=== PATIENT | male | born 1980 | race Caucasian/White ===

== ENCOUNTER 2020-08-03 13:25 | Emergency (ER) | payer SELFPAY ==
[2020-08-03 13:28] VITALS: BP 149/76; PULSE 89; RESP 16; TEMP 37; O2SAT 99; BMI 24.4
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
[2020-08-03 16:27] VITALS: BP 149/76; PULSE 89; RESP 16; TEMP 37; O2SAT 99
== END 2020-08-03 16:27 | disposition home or self-care (01) ==
PROVIDERS: Emergency Provider Family Medicine
DX: S09.90XA Unspecified injury of head, initial encounter (principal); F07.81 Postconcussional syndrome; V48.0XXA Car driver injured in noncollision transport accident in nontraffic accident, initial encounter; Y92.488 Other paved roadways as the place of occurrence of the external cause
CPT/HCPCS: 70450; 72125; 99282

== ENCOUNTER → 2023-09-14 09:45 | Outpatient (CLI) | payer OTHER, SELFPAY ==
[2023-09-14 12:32] LABS: Alanine Aminotransferase 91 U/L (12-78); Albumin Level 4.7 g/dl (3.5-5.0); Albumin/Globulin Ratio 1.6 (1.1-1.8); Alkaline Phosphatase 35 U/L (38-126); Aspartate Amino Transferase 82 U/L (17-59); Blood Urea Nitrogen 14 mg/dl (9-20); Calcium 9.8 mg/dl (8.4-10.2); Carbon Dioxide 25 mmol/L (22.0-30.0); Chloride 100 mmol/L (98-107); Chol/HDL Ratio 7.1 (1-3.5); Cholesterol 221 mg/dl (140-200); Estimated Glomerular Filt Rate 93 ml/min (>60); GFR (African American) 113 ML/MIN (>60); Globulin 2.9 g/dL (1.3-3.2); Glucose 130 mg/dl (74-100); HDL Cholesterol 31 mg/dl (40-60); Sodium 140 mmol/L (136-145); Total Protein,Serum 7.6 g/dl (6.3-8.2); Triglycerides 120 mg/dl (30-150); VLDL Cholesterol 24 mg/dL (0-40)
[2023-09-14 12:35] LABS: Basophils # 0.1 K/mm3 (0-0.2); Basophils % 0.7 % (0.1-2.0); Eosinophils # 0.3 K/mm3 (0.0-0.4); Eosinophils % 2.4 % (0.1-12.0); Hematocrit 48.6 % (42.0-52.0); Hemoglobin 17.2 g/dL (14.1-18.0); Lymphocytes % 28.5 % (10-50); Mean Corpuscular HGB Conc 35.4 g/dL (31.8-35.4); Mean Corpuscular Hemoglobin 32.7 pg (27.0-31.2); Mean Corpuscular Volume 92.5 fl (80-94); Mean Platelet Volume 7.4 fl (7.4-10.4); Monocytes # 0.7 K/mm3 (0.1-1.0); Monocytes % 6.3 % (1.7-9.3); Neutrophils # 6.5 K/mm3 (1.8-7.8); Neutrophils % 62.1 % (37.0-80.0); Platelet Count 215 K/mm3 (142-424); Red Blood Count 5.25 M/mm3 (4.60-6.20); Red Cell Distribution Width 13.1 % (11.5-17.5); White Blood Count 10.5 K/mm3 (4.8-10.8)
[2023-09-14 12:44] LABS: Direct LDL Cholesterol 150.37 mg/dL (100-129)
[2023-09-14 12:49] LABS: 25-OH Vitamin D, Total 38.5 ng/mL (30-100)
[2023-09-14 12:50] LABS: T4 (Thyroxine) 12.3 ug/dl (5.53-11.0)
[2023-09-14 13:03] LABS: Thyroid Stimulating Hormone 2.72 uIU/mL (0.465-4.68)
[2023-09-14 13:36] LABS: Amphetamine/Metha Screen,Urine Negative ng/ml (<1000)
[2023-09-14 13:37] LABS: Benzodiazepines Screen,Urine Negative ng/ml (<200)
[2023-09-14 13:38] LABS: Barbiturates Screen,Urine Negative ng/ml (<200)
[2023-09-14 13:42] LABS: Cocaine Screen,Urine Negative ng/ml (<300)
[2023-09-14 13:43] LABS: Cannabinoid Screen,Urine Negative ng/ml (<50)
[2023-09-14 13:56] LABS: Opiate Screen,Urine Negative ng/ml (<300)
[2023-09-14 13:57] LABS: Methadone Screen,Urine Negative ng/ml (<300)
[2023-09-14 14:01] LABS: Phencyclidine Screen,Urine Negative ng/ml (<25)
[2023-09-19 10:22] LABS: HBsAg Screen Negative (Negative); HCV Ab Non Reactive (Non Reactive); Hep A Ab, IGM Negative (Negative); Hep B Core Ab, IgM Negative (Negative)
== END ==
LOC: LAB.DROPOF 13:55
PROVIDERS: PCP Emergency Medicine; Visit Provider Emergency Medicine
DX: R53.83 Other fatigue (principal); R74.8 Abnormal levels of other serum enzymes; Z68.27 Body mass index [BMI] 27.0-27.9, adult
CPT/HCPCS: 80053; 80061; 80074; 80305; 82306; 84436; 84443; 85025

== ENCOUNTER → 2023-09-27 07:07 | Outpatient (CLI) | payer OTHER, SELFPAY ==
--- NOTE | 2023-09-27 07:19 | XR_ITS ---
FINAL REPORT CLINICAL HISTORY: back pain COMPARISON: None FINDINGS: 5 views of the lumbar spine were obtained. There is no evidence of fracture or dislocation. There is a mild leftward curvature of the lumbar spine. Mild degenerative changes present. No paraspinous soft tissue abnormalities identified. IMPRESSION: No acute bony abnormality. Reviewed, Interpreted and Dictated by Joseph Nava III, MD Transcribed by Sayda Ovalel Authenticated and [facility]
--- NOTE | 2023-09-27 07:19 | US_ITS ---
FINAL REPORT CLINICAL HISTORY: abnormal labs COMPARISON: None FINDINGS: Sonographic images of the right upper quadrant were obtained. The pancreas is partially obscured. There is increased echogenicity in the liver, mild, compatible with mild fatty infiltration of the liver. The gallbladder appears normal without evidence of gallstones.There is no evidence of biliary ductal dilatation.The common duct measures 4.7 mm. Limited images of the right kidney are unremarkable. IMPRESSION: Mild fatty infiltration of the liver. Reviewed, Interpreted and Dictated by Joseph Nava III, MD Transcribed by Sayda Ovalle Authenticated and [facility]
== END ==
LOC: RAD 07:08
PROVIDERS: PCP Emergency Medicine; Visit Provider Emergency Medicine
DX: M54.9 Dorsalgia, unspecified (principal); R89.9 Unspecified abnormal finding in specimens from other organs, systems and tissues
CPT/HCPCS: 72110; 76705

== ENCOUNTER 2023-09-27 15:08 | Outpatient (RCR) | payer OTHER, SELFPAY ==
--- NOTE | 2023-09-27 15:43 | HMH.PTOPEV ---
PT Outpatient Evaluation Rehab PT Outpatient Evaluation Start: 09/27/23 15:34 Freq: Status: Active Protocol: Document 09/27/23 15:34 RAMSES (Rec: 09/27/23 15:43 RAMSES [id number]) E-signed By Torsten London, PT Outpatient Therapy Subjective History Subjective History Pt reports h/o intermittent LBP for ~10 yrs. Pt reports frequency of LBP has increased over the last ~6 months, and reports midline LBP with referred s/s into paraspinal mm. Pt reports at its worst pain will refer up into mid- back. New diagnosis of cancer in past 12 No months? Chief Complaint Pain,Stiff Symptom Type Ache,Throb,Dull Symptoms Relieved By Rest/Positioning,Heat Symptoms Aggravated By Sitting,Standing,Twisting Prior Functional Limitations Lifting,Housework,Standing, Sitting Current Functional Limitations Lifting,Housework,Standing, Sitting Symptom Description Constant but Variable Level of pain today (0-10) 3 Pain scale - at its best (0-10) 3 Pain scale - at its worst (0-10) 9 Lumbopelvic Eval Posture Thoracic Spine Posture Standing Position Neutral Lumbar Spine Posture Standing Position Flattened Assistive device Assistive Devices None / NA Gait Observation General Gait Pattern Observation No Deviations/Normal Palapation tenderness bilateral thoracic spinal tenderness Yes: 1-2/4 lumbar spinal tenderness Yes: 2-3/4 paraspinal tenderness Yes: 2/4 buttock tenderness No: 0/4 Lumbar/Sacral Palpation Findings Tenderness,Muscle Guarding Accessory Movement L-spine Vertebrae Accessory Movements Central P/A [place] that Elicit Symptoms L2 bilateral L3 bilateral L4 bilateral L5 bilateral Range of Motion Lumbar Spine Active Flexion Range of 0-70 Motion (degrees) Lumbar Spine Active Extension Range of 0-10 Motion (degrees) Left Lumbar Spine Lateral Flexion Active 0-15 Range of Motion (degrees) Right Lumbar Spine Lateral Flexion 0-15 Active Range of Motion (degrees) Lumbar Spine ROM Limitations Pain Manual Muscle Test Bilateral Knee Extension Strength Grade 5 Normal Knee Flexion Strength Grade 5 Normal Hip Flexion Strength Grade 4 Good Hip Abduction Strength Grade 4- Good- Hip Adduction Strength Grade 5 Normal Hip External Rotation Strength Grade 4
== END 2023-09-27 15:10 | disposition home or self-care (01) ==
LOC: PT 15:08
PROVIDERS: PCP Emergency Medicine; Visit Provider Emergency Medicine
DX: M54.9 Dorsalgia, unspecified (principal); M54.50 Low back pain, unspecified
CPT/HCPCS: 97163

== ENCOUNTER → 2023-10-12 15:02 | Outpatient (CLI) | payer OTHER, SELFPAY ==
--- NOTE | 2023-10-12 15:10 | MR_ITS ---
FINAL REPORT CLINICAL HISTORY: back AND COCCYX PAIN FINDINGS: Multiplanar MR imaging of the lumbar spine was performed without contrast. On the sagittal T2-weighted images, abnormal decreased signal is seen at L5-S1 with mild loss of height at this level. The vertebrae are of normal height. The vertebral alignment is normal. L1-2: There is no significant canal stenosis or neural foraminal narrowing. L2-3: There is no significant canal stenosis or neural foraminal narrowing. L3-4: There is no significant canal stenosis or neural foraminal narrowing. L4-5: Mild diffuse disc bulge is present with mild bilateral neural foraminal narrowing. L5-S1: Mild broad-based midline disc protrusion is present with mild spinal canal compromise. IMPRESSION: Broad-based midline disc protrusion at L5-S1 with mild spinal canal compromise. Reviewed, Interpreted and Dictated by Connor Prado MD Transcribed by Edie Lake Authenticated and [facility]
== END ==
LOC: RAD 15:02
PROVIDERS: PCP Emergency Medicine; Visit Provider Emergency Medicine
DX: M54.9 Dorsalgia, unspecified (principal)
CPT/HCPCS: 72148; 76376

== ENCOUNTER 2023-11-13 17:03 | Outpatient (RCR) | payer OTHER, SELFPAY ==
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
== END 2023-11-13 18:05 | disposition home or self-care (01) ==
LOC: PT 17:03
PROVIDERS: PCP Emergency Medicine; Visit Provider Nurse Practitioner Family
DX: M54.50 Low back pain, unspecified (principal); M54.16 Radiculopathy, lumbar region
CPT/HCPCS: 97163

== ENCOUNTER 2023-12-03 15:44 | Outpatient (CLI) | payer BC, SELFPAY ==
--- NOTE | 2023-12-03 15:47 | XR_ITS ---
FINAL REPORT CLINICAL HISTORY: knee pain FINDINGS: Right knee Four views were obtained. There is no acute fracture or dislocation. There are mild degenerative changes. Mild meniscal calcification is identified. No joint effusion is identified. IMPRESSION: Mild degenerative changes. Reviewed, Interpreted and Dictated by Joseph Nava III, MD Transcribed by Edie Lake Authenticated and [facility]
--- NOTE | 2023-12-03 15:47 | XR_ITS ---
FINAL REPORT CLINICAL HISTORY: right knee pain FINDINGS: Right knee Two views were obtained. There is no acute fracture or dislocation. There is minimal patellofemoral degenerative change. IMPRESSION: Minimal patellofemoral degenerative change. Reviewed, Interpreted and Dictated by Joseph Nava III, MD Transcribed by Edie Lake Authenticated and [facility]
[2023-12-03 23:08] LABS: Amphetamine/Metha Screen,Urine Negative ng/ml (<1000); Barbiturates Screen,Urine Negative ng/ml (<200); Benzodiazepines Screen,Urine Positive ng/ml (<200); Cannabinoid Screen,Urine Negative ng/ml (<50); Cocaine Screen,Urine Negative ng/ml (<300); Methadone Screen,Urine Negative ng/ml (<300); Opiate Screen,Urine Negative ng/ml (<300); Phencyclidine Screen,Urine Negative ng/ml (<25)
== END 2023-12-03 23:59 ==
LOC: RAD 15:45
PROVIDERS: PCP Internal Medicine; Visit Provider Internal Medicine
DX: M25.561 Pain in right knee (principal); M54.16 Radiculopathy, lumbar region; Z79.899 Other long term (current) drug therapy
CPT/HCPCS: 73560; 73564; 80307